=== PATIENT | female | born 1995 | race African-American/Black ===

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

== ENCOUNTER 2017-03-09 06:11 | Emergency (ER) | payer OTHER ==
[2017-03-09 06:24] VITALS: BP 115/74
== END 2017-03-09 06:52 | disposition home or self-care (01) ==
LOC: ED 06:11
DX: H00.011 Hordeolum externum right upper eyelid (principal); Z88.6 Allergy status to analgesic agent

== ENCOUNTER 2017-07-31 09:39 | Inpatient (IN) | payer OTHER ==
[~2017-07-31] VITALS: Ht 172.7 cm; Wt 60.1 kg
[2017-07-31 09:40] VITALS: Ht 172.7 cm; Wt 60.1 kg
[2017-07-31 10:52] LABS: PLATELET COUNT 192 x10^3mcL (130-400)
[2017-07-31 11:08] LABS: CALCIUM 8.7 mg/dL (8.5-10.1); CARBON DIOXIDE 24.5 mmol/L (21-32); CHLORIDE SERUM 104 mmol/L (98-107); CREATININE SERUM 0.8 mg/dL (0.6-1.0); GFR1 > 60 mL/min; GLUCOSE SERUM 82 mg/dL (74-106); POTASSIUM SERUM 3.6 mmol/L (3.5-5.1); SODIUM SERUM 136 mmol/L (136-145)
[2017-07-31 11:12] LABS: ALBUMIN 3.6 g/dL (3.4-5.0); ALKALINE PHOSPHATASE 97 U/L (46-116); ALT/SGPT 19 U/L (14-59); AST/SGOT 18 U/L (15-37); BILIRUBIN TOTAL 0.2 mg/dL (0.20-1.00); TOTAL PROTEIN, SERUM 7.9 g/dL (6.4-8.2)
[2017-07-31 11:40] LABS: RED CELL DISTRIBUTION WIDTH 17.3 % (11.5-14.5)
[2017-07-31 12:00] LABS: ATYPICAL LYMPH 4 %; BAND NEUTROPHIL 2 % (0-10); BASOPHIL 0 % (0-2); MONOCYTE 18 % (0-7); SEGMENTED NEUTROPHILS 56 % (37-75); rbc morphology (normal/abnorm) ABNORMAL (NORMAL)
[2017-07-31 12:01] LABS: PLATELET MORPHOLOGY D
[2017-07-31 13:06] LABS: AMPHETAMINE QUAL UR NONE DETECTED (NEG <=1000)
[2017-07-31] MEDS ORDERED: TRAZADONE (13:25)
[2017-07-31 14:01] VITALS: BP 113/61
[2017-07-31 14:22] LABS: MAGNESIUM 2.2 mg/dL (1.8-2.4); PHOSPHOROUS 4.8 mg/dL (2.5-4.9)
[2017-07-31 14:23] LABS: T3 TOTAL 1.11 ng/mL
[2017-07-31 14:26] LABS: FREE T4 0.91 ng/dL (0.76-1.46); FREE THYROXINE INDEX 2.4 ug/dL (1.4-4.5); T4(THYROXINE) 7.7 ug/dL (4.7-13.3)
[2017-07-31 14:34] LABS: CHOLESTEROL/HDL RATIO 2.3
[2017-07-31 14:47] LABS: microscopic required? NO
[2017-07-31 14:56] LABS: urine erythrocyte NEGATIVE (NEGATIVE)
[2017-07-31 17:00] LABS: RED BLOOD CELLS 4.23 M/mm3 (4.10-5.10)
[2017-07-31 21:57] VITALS: BP 99/52
[2017-08-01 01:18] LABS: TOTAL IRON BINDING CAPACITY 294 ug/dL (250-450)
[2017-08-01 01:20] LABS: IRON 21 ug/dL (50-170)
[2017-08-01 06:20] VITALS: BP 105/51
[2017-08-01 06:55] LABS: PLATELET COUNT 162 x10^3mcL (130-400)
[2017-08-01 07:05] LABS: CALCIUM 7.9 mg/dL (8.5-10.1); CARBON DIOXIDE 24.8 mmol/L (21-32); CHLORIDE SERUM 108 mmol/L (98-107); CREATININE SERUM 0.7 mg/dL (0.6-1.0); GFR1 > 60 mL/min; GLUCOSE SERUM 82 mg/dL (74-106); POTASSIUM SERUM 4.1 mmol/L (3.5-5.1); SODIUM SERUM 138 mmol/L (136-145)
[2017-08-01 07:31] LABS: RED CELL DISTRIBUTION WIDTH 17.8 % (11.5-14.5)
[2017-08-01 07:56] LABS: ATYPICAL LYMPH 14 %; BAND NEUTROPHIL 4 % (0-10); BASOPHIL 0 % (0-2); MONOCYTE 14 % (0-7); SEGMENTED NEUTROPHILS 24 % (37-75)
[2017-08-01 07:57] LABS: PLATELET MORPHOLOGY PLATELETS DECREASED; ovalocyte/elliptocyte 1+; rbc morphology (normal/abnorm) ABNORMAL (NORMAL)
[2017-08-01 08:33] VITALS: BP 99/56
[2017-08-01 13:08] VITALS: BP 118/63
[2017-08-01 17:21] VITALS: BP 113/73
[2017-08-02 05:45] VITALS: BP 95/55
[2017-08-02 06:53] LABS: PLATELET COUNT 193 x10^3mcL (130-400)
[2017-08-02 07:07] LABS: CALCIUM 8.4 mg/dL (8.5-10.1); CARBON DIOXIDE 24.5 mmol/L (21-32); CHLORIDE SERUM 105 mmol/L (98-107); CREATININE SERUM 0.8 mg/dL (0.6-1.0); GFR1 > 60 mL/min; GLUCOSE SERUM 78 mg/dL (74-106); POTASSIUM SERUM 3.8 mmol/L (3.5-5.1); SODIUM SERUM 139 mmol/L (136-145)
[2017-08-02 07:11] LABS: RED CELL DISTRIBUTION WIDTH 17.4 % (11.5-14.5)
[2017-08-02 08:30] VITALS: BP 103/58
[2017-08-02 10:02] LABS: BAND NEUTROPHIL 5 % (0-10); BASOPHIL 0 % (0-2); MONOCYTE 9 % (0-7); SEGMENTED NEUTROPHILS 56 % (37-75)
[2017-08-02 10:04] LABS: rbc morphology (normal/abnorm) ABNORMAL (NORMAL)
[2017-08-02 10:05] LABS: ovalocyte/elliptocyte 1+
[2017-08-02 13:15] VITALS: BP 102/57
[2017-08-02 17:01] VITALS: BP 105/59
[2017-08-02 22:05] VITALS: BP 112/56
[2017-08-03] VITALS (7 sets, daily range): BP systolic 101–122; BP diastolic 44–72
[2017-08-03 07:23] LABS: PLATELET COUNT 181 x10^3mcL (130-400)
[2017-08-03 07:28] LABS: RED CELL DISTRIBUTION WIDTH 17.4 % (11.5-14.5)
[2017-08-03 07:31] LABS: CALCIUM 8.3 mg/dL (8.5-10.1); CARBON DIOXIDE 22.7 mmol/L (21-32); CHLORIDE SERUM 105 mmol/L (98-107); CREATININE SERUM 0.8 mg/dL (0.6-1.0); GFR1 > 60 mL/min; GLUCOSE SERUM 63 mg/dL (74-106); POTASSIUM SERUM 4.2 mmol/L (3.5-5.1); SODIUM SERUM 139 mmol/L (136-145)
[2017-08-03 07:57] LABS: BAND NEUTROPHIL 1 % (0-10); MONOCYTE 14 % (0-7); SEGMENTED NEUTROPHILS 61 % (37-75); rbc morphology (normal/abnorm) NORMAL (NORMAL)
[2017-08-04 05:46] VITALS: BP 92/41
[2017-08-04] MEDS ORDERED: ELA25 PO (08:42)
[2017-08-04] MEDS ORDERED: KLO0.5 PO (08:44)
[2017-08-04] MEDS ORDERED: ICAR C PLUS PO (10:12)
[2017-08-04] MEDS ORDERED: COLACE100 MG PO (10:12)
[2017-08-04] MEDS ORDERED: ZOFRAN ODT4 MG SL (12:38)
[2017-08-04 13:14] VITALS: BP 92/41
== END 2017-08-04 13:55 | disposition home or self-care (01) | DRG 923 ==
LOC: ED 09:39 → DU 13:17
PROVIDERS: Emergency Medicine; Family Medicine; Internal Medicine Gastroenterology
PROC: 0DB68ZX Excision of Stomach, Via Natural or Artificial Opening Endoscopic, Diagnostic (ICD-10-PCS; principal; 2017-08-03 10:00)
DX: T67.5XXA Heat exhaustion, unspecified, initial encounter (principal); E86.0 Dehydration; R55 Syncope and collapse; R11.2 Nausea with vomiting, unspecified; K52.9 Noninfective gastroenteritis and colitis, unspecified; G43.909 Migraine, unspecified, not intractable, without status migrainosus; F41.9 Anxiety disorder, unspecified; D64.9 Anemia, unspecified; Z82.49 Family history of ischemic heart disease and other diseases of the circulatory system; X30.XXXA Exposure to excessive natural heat, initial encounter; Y93.89 Activity, other specified; Y92.830 Public park as the place of occurrence of the external cause
CPT/HCPCS: 43235; 82962; 83880; 84439; 86308; 87046; 87046-59; 97110-GP; 97116-GP; 97530-GP; G0480; J1200; J1610; J1956; J2250; J2310; J2405; J2550; J2765; J2916; J3010; J3490; J7030; J8597; Q0092; Q9967

== ENCOUNTER 2018-01-12 13:37 | Emergency (ER) | payer OTHER ==
[~2018-01-12 13:37] MED LIST: COLACE100 MG PO; ELA25 PO; ICAR C PLUS PO; KLO0.5 PO; TRAZADONE; ZOFRAN ODT4 MG SL
== END 2018-01-12 14:21 | disposition left against medical advice (07) ==
LOC: ED 13:37
DX: Z53.21 Procedure and treatment not carried out due to patient leaving prior to being seen by health care provider (principal)

== ENCOUNTER 2020-03-05 11:59 | Emergency (ER) | payer OTHER ==
[~2020-03-05] VITALS: Ht 172.7 cm; Wt 63.5 kg
[2020-03-05 12:00] VITALS: Ht 172.7 cm; Wt 63.5 kg
[2020-03-05 16:55] VITALS: BP 115/72
== END 2020-03-05 16:55 | disposition home or self-care (01) ==
LOC: ED 11:59
DX: T78.40XA Allergy, unspecified, initial encounter (principal); M94.0 Chondrocostal junction syndrome [Tietze]; L93.0 Discoid lupus erythematosus; Z88.8 Allergy status to other drugs, medicaments and biological substances; X58.XXXA Exposure to other specified factors, initial encounter
CPT/HCPCS: J1200; J2270; J2405; J2930; J3490